=== PATIENT | male | born 1960 | race Caucasian/White ===

== ENCOUNTER 2019-09-27 17:06 | Emergency (ER) | payer OTHER ==
[~2019-09-27] VITALS: Ht 193 cm; Wt 107.0 kg
--- NOTE | 2019-09-27 17:16 | NUR ---
BIB [facility]. PT C/O ALL OVER SEVERE BODY CRAMPING. HX CRISTEL'S DISEASE. PT COMPLIANT WITH MEDS. DENIES LOC. 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 PT CONNECTED TO MONITORING. LABS COLLECTED FROM PIV. AWAITING ORDERS AT THIS TIME.
[2019-09-27] MEDS ORDERED: HYDROCORTISONE 100 MG INJ. ONE (17:59)
[2019-09-27] MEDS ORDERED: DIAZEPAM 5 MG TABLET ONE (17:59)
[2019-09-27] MEDS ORDERED: PLEASE ENTER ALLERGIES MC SCH (18:00)
[2019-09-27] MEDS ORDERED: DIAZEPAM 5 MG TABLET PO ONE (18:00)
[2019-09-27] MEDS ORDERED: HYDROCORTISONE 100 MG INJ. IVPush ONE (18:00)
[2019-09-27 18:03] LABS: BASOPHILS # (AUTO) 0.02 x10^3/uL (0-0.1); BASOPHILS % (AUTO) 0 % (0-1); EOSINOPHILS # (AUTO) 0.28 x10^3/uL (0-0.4); EOSINOPHILS % (AUTO) 3 % (1-7); LYMPHOCYTES # (AUTO) 1.59 x10^3/uL (1-3.4); LYMPHOCYTES % (AUTO) 14 % (22-44); MD NO; MEAN CORPUSCULAR HEMOGLOBIN 30.4 pg (27.5-34.5); MEAN CORPUSCULAR HGB CONC 33.4 g/dL (33.2-36.2); MEAN PLATELET VOLUME 9.6 fL (7.4-10.4); MONOCYTES # (AUTO) 1.15 x10^3/uL (0.2-0.8); MONOCYTES % (AUTO) 10 % (2-9); NEUTROPHILS # (AUTO) 8.36 x10^3/uL (1.8-6.8); NEUTROPHILS % (AUTO) 73 % (42-75); PLATELET COUNT 349 x10^3/uL (130-400); RED BLOOD COUNT 5.38 x10^6/uL (4.38-5.82); RED CELL DISTRIBUTION WIDTH 12.8 % (9.4-14.8)
--- NOTE | 2019-09-27 18:07 | NUR ---
MEDS ADMIN PER JUL. PT TO COME TO DRIVE PT HOME. LAB AT BEDSIDE.
[2019-09-27 18:08] LABS: ALANINE AMINOTRANSFERASE 28 U/L (12-78); ALBUMIN 4.3 g/dL (3.4-5.0); ANION GAP 13 mmol/L (5-15); CALCIUM 9.2 mg/dL (8.5-10.1); CHLORIDE 97 mmol/L (98-107); CREATININE 1.81 mg/dL (0.7-1.3)
[2019-09-27 18:10] LABS: ALKALINE PHOSPHATASE 84 U/L (45-117); BILIRUBIN,TOTAL 0.5 mg/dL (0.2-1.0); CREATINE KINASE, TOTAL 478 U/L (39-308); TOTAL PROTEIN 8.8 g/dL (6.4-8.2)
--- NOTE | 2019-09-27 18:34 | NUR ---
MD AT BEDSIDE TO UPDATE PT ON POC.
[2019-09-27] MEDS ORDERED: SODIUM CHLORIDE 0.9% 1,000 ML IV ONE (18:37)
[2019-09-27] MEDS ORDERED: MORPHINE SULFATE 4 MG/ML, 1ML ONE (18:40)
[2019-09-27] MEDS ORDERED: morphine SULFATE 10 MG/ML, 1ML IVPush ONE (19:00)
[2019-09-27] MEDS ORDERED: HYDROCORTISONE ×2 (19:01)
[2019-09-27] MEDS ORDERED: DULOXETINE (19:01)
[2019-09-27] MEDS ORDERED: [UNRECOGNIZED DRUG - OTHER] (19:02)
[2019-09-27] MEDS ORDERED: SYNTHROID (19:02)
--- NOTE | 2019-09-27 19:09 | NUR ---
TASK RN: PT MEDICATED PER MAR FOR PAIN. PT REPORTS MINOR RELIEF FROM MORPHINE AT THIS TIME.
[2019-09-27] MEDS ORDERED: SODIUM CHLORIDE 0.9% 1,000ML IVBOLUS ONE (20:30)
[2019-09-27] MEDS ORDERED: CALCIUM GLUCONATE 4.6 MEQ in SODIUM CHLORIDE 0.9% 100 ML IV ONE (20:30)
--- NOTE | 2019-09-27 21:00 | NUR ---
MEDS ADMIN PER MAR. PT RESTING ON GREGORY. PT STATES HE FEELS BETTER THAN WHEN HE GOT HERE. PER HOSPITALIST, PT POSSIBLE DC AFTER MEDS AND IVF.
[2019-09-27 21:01] VITALS: BP 146/73
--- NOTE | 2019-09-27 22:05 | NUR ---
IV INFUSION COMPLETE. PT DECIDED HE DOES NOT WANT TO STAY AND BE ADMITTED. PT SIGNED AMA PAPERWORK. PROVIDER AWARE. SISTER HERE TO DRIVE PT HOME.
== END 2019-09-27 22:15 | disposition left against medical advice (07) ==
LOC: ED 19:26 → UNDOADMIN 20:36 → EDIP 20:36 → ED 22:15
DX: M62.82 Rhabdomyolysis (principal); N28.9 Disorder of kidney and ureter, unspecified; E83.51 Hypocalcemia
CPT/HCPCS: 36415; 80053; 82330; 82550; 83605; 83735; 85025; 96361; 96365; 96375; 99284; J0610; J1720; J2270; J7030